=== PATIENT | female | born 1975 | race Caucasian/White ===

== ENCOUNTER 2019-02-11 16:05 | Emergency (ER) | payer OTHER ==
[2019-02-11] MEDS ORDERED: Lidocaine 1% 10 ML MDV INJECT ONE (16:32)
[2019-02-11] MEDS ORDERED: Diphtheria,Pertussis(Acell),Tetanus Vaccine 0.5 ML Syringe IM ONE (16:32)
--- NOTE | 2019-02-11 16:38 | EDM.PDOC ---
ED HPI GENERAL MEDICAL PROBLEM - General Chief Complaint: Laceration Stated Complaint: RIGHT SANCHEZ LAC Time Seen by Provider: 02/11/19 16:11 Source of Information: Reports: Patient, RN Notes Reviewed History Limitations: Reports: No Limitations - History of Present Illness INITIAL COMMENTS - FREE TEXT/NARRATIVE: Patient is a 43-year-old female who presents to the ED for evaluation of a right sanchez laceration. Patient think this injury occurred around 3:30 PM today. She was working outdoors on a trailer, and remembered hitting her legs on either the trailer hitch or cinder block. This resulted in to lacerations to her right lower leg, one is mid sanchez one is more proximal sanchez, the more proximal sanchez is an abrasion type injury, and the lower abrasion/laceration is superficial, and appears to be a gaping wound are right around 2 cm long. Patient is not sure of her last tetanus booster, she thinks she may have gotten one around 11 years ago with her last . She denies any pain, numbness and tingling distal to the injury. Right Lower Leg Pain Score (Numeric/FACES): 7 - Related Data Allergies Allergy/AdvReac Type Severity Reaction Status Date / Time No Known Allergies Allergy Verified 02/11/19 16:14 Home Meds: Home Meds . [No Known Home Meds] 02/11/19 [History] Past Medical History Hematologic History: Reports: Other (See Below) Other Hematologic History: low ferratin level Social & Family History - Tobacco Use Smoking Status *Q: Current Every Day Smoker Years of Tobacco use: 25 Packs/Tins Daily: 0.1 - Caffeine Use Caffeine Use: Reports: Coffee, Soda - Recreational Drug Use Recreational Drug Use: No ED ROS GENERAL - Review of Systems Review Of Systems: See Below Constitutional: Reports: No Symptoms HEENT: Reports: No Symptoms Respiratory: Reports: No Symptoms Cardiovascular: Reports: No Symptoms Endocrine: Reports: No Symptoms GI/Abdominal: Reports: No Symptoms : Reports: No Symptoms Musculoskeletal: Reports: Leg Pain (R sanchez) Skin: Reports: Wound (See HPI) Neurological: Denies: Numbness, Tingling Psychiatric: Reports: No Symptoms Hematologic/Lymphatic: Reports: No Symptoms Immunologic: Reports: No Symptoms ED EXAM, SKIN/RASH Exam: See Below Exam Limited By: No Limitations General Appearance: Alert, WD/WN, No Apparent Distress Respiratory/Chest: No Respiratory Distress, Lungs Clear, Normal Breath Sounds, No Accessory Muscle Use, Chest Non-Tender Cardiovascular: Normal Peripheral Pulses, Regular Rate, Rhythm, No Murmur Peripheral Pulses: 3+: Dorsalis Pedis (L), Dorsalis Pedis (R) Extremities: Normal Inspection (With exception of lacerations on the right sanchez) , Normal Range of Motion, Normal Capillary Refill Neurological: Alert, Oriented, Normal Cognition, No Motor/Sensory Deficits Psychiatric: Normal Affect, Normal Mood Skin: Warm, Dry, Normal Color, No Rash, Wound/Incision (2 wounds: Wound #1 proximal sanchez, this is a superficial abrasion and measures around 3 cm. #2 medial sanchez, this is superficial, but gaping, deeper than the proximal wound, and around 2 cm long, linear in fashion. Not a lot of active bleeding noted to either abrasion.) Location, Skin: Lower Extremity, Right ED SKIN PROCEDURES - Laceration/Wound Repair Right Lower Mid-Anterior Leg Appearance: Superficial, Linear, Clean Distal NVT: Neuro & Vascular Intact, No Tendon Injury Anesthetic Type: Local Local Anesthesia - Lidocaine (Xylocaine): 1% Plain Skin Prep: Chlorhexidine (Hibiciens), Saline Exploration/Debridement/Repair: Wound Explored, In a Bloodless Field, Explored to Base, No Foreign Material Found Closed with: Sutures Lac/Wound length In cm: 2 Suture Size: 4-0 # of Sutures: 5 Suture Type: Prolene, Interrupted, Simple Sterile Dressing Applied: Nurse Tetanus Status Addressed: Yes Complications: No Course - Vital Signs Last Recorded V/S: Last Vital Signs Temp 98.1 F 02/11/19 16:17 Pulse 70 02/11/19 16:17 Resp 20 02/11/19 16:17 BP 128/82 02/11/19 16:17 Pulse Ox 97 02/11/19 16:17 - Orders/Labs/Meds Meds: Medications Discontinued Medications Generic Name Dose Route Start Last Admin Trade Name Freq PRN Reason Stop Dose Admin Diphtheria/Tetanus/Acell Pertussis 0.5 ml 02/11/19 16:32 02/11/19 17:12 Adacel IM 02/11/19 16:33 Not Given .ONCE ONE Lidocaine HCl 10 ml 02/11/19 16:32 02/11/19 17:03 Xylocaine 1% INJECT 02/11/19 16:33 10 ml ONETIME ONE Administration Departure - Departure Time of Disposition: 17:05 Disposition: Home, Self-Care 01 Condition: Fair Clinical Impression: Laceration of right lower leg Qualifiers: Encounter type: initial encounter Qualified Code(s): S81.811A - Laceration without foreign body, right lower leg, initial encounter - Discharge Information *PRESCRIPTION DRUG MONITORING PROGRAM REVIEWED*: No *COPY OF PRESCRIPTION DRUG MONITORING REPORT IN PATIENT KAPIL: No Instructions: Sutured Wound Care, [id number] Referrals: PCP,None [Primary Care Provider] - Forms: ED Department Discharge Additional Instructions: You have been evaluated in the ED for your laceration. Sutures will need to stay in for 10-14 days (02/21-02/25). You may return to the ED or clinic for removal. Please keep this area clean and dry, you may cleanse with regular soap and water. No vigorous scrubbing. Watch out for signs of infection like increased redness, swelling, pain at the laceration site, or if you should develop any fevers or chills. Please return to ED if your symptoms change or worsen.
== END 2019-02-11 17:40 | disposition home or self-care (01) ==
LOC: JD.ED 16:05
DX: S81.811A Laceration without foreign body, right lower leg, initial encounter (principal); F17.210 Nicotine dependence, cigarettes, uncomplicated; W22.8XXA Striking against or struck by other objects, initial encounter; Y93.89 Activity, other specified; Y92.89 Other specified places as the place of occurrence of the external cause
CPT/HCPCS: 12001; 99282; J2001

== ENCOUNTER 2020-08-31 11:49 | Emergency (ER) | payer OTHER ==
--- NOTE | 2020-08-31 12:35 | EDM.PDOC ---
ED HPI GENERAL MEDICAL PROBLEM - General Chief Complaint: Lower Extremity Injury/Pain Stated Complaint: RT KNEE INJURY Time Seen by Provider: 08/31/20 11:59 Source of Information: Reports: Patient, RN Notes Reviewed History Limitations: Reports: No Limitations - History of Present Illness INITIAL COMMENTS - FREE TEXT/NARRATIVE: Patient is a 45-year-old female presenting to the emergency department with complaints of right knee pain. She reports that she kneeled down and felt a pop. She has been unable to straighten her knee since the time of occurrence. She reports that she has had numerous episodes similar to this in the past, however normally she can straighten her leg and will feel another pop and it resolves. She did have an MRI done approximately 1 year ago of the knee and no abnormalities were found. Right Knee Pain Score (Numeric/FACES): 8 - Related Data Allergies Allergy/AdvReac Type Severity Reaction Status Date / Time No Known Allergies Allergy Verified 08/31/20 12:03 Home Meds: Home Meds Control. 1 tab PO DAILY 08/31/20 [History] Naproxen [Naprosyn] 500 mg PO Q12HR 5 Days #10 tab 08/31/20 [Rx] Past Medical History Hematologic History: Reports: Other (See Below) Other Hematologic History: low ferratin level - Past Surgical History GI Surgical History: Reports: Colonoscopy Social & Family History - Tobacco Use Tobacco Use Status *Q: Former Tobacco User Used Tobacco, but Quit: Yes Month/Year Tobacco Last Used: 3 years - Caffeine Use Caffeine Use: Reports: Coffee, Soda - Recreational Drug Use Recreational Drug Use: No Review of Systems - Review of Systems Review Of Systems: Comprehensive ROS is negative, except as noted in HPI. ED EXAM, GENERAL - Physical Exam Exam: See Below General Appearance: Alert, WD/WN, No Apparent Distress Respiratory/Chest: No Respiratory Distress, Lungs Clear, Normal Breath Sounds, No Accessory Muscle Use, Chest Non-Tender Cardiovascular: Normal Peripheral Pulses, Regular Rate, Rhythm, No Edema, No Gallop, No JVD, No Murmur, No Rub Extremities: Other (mild suprapatellar swelling. Patella is midline. No obvious deformity. Pt unable to straighten knee d/t pain.) Course - Vital Signs Last Recorded V/S: Last Vital Signs Temp 98.2 F 08/31/20 12:05 Pulse 88 08/31/20 12:05 Resp 16 08/31/20 12:05 BP 143/93 H 08/31/20 12:05 Pulse Ox 97 08/31/20 12:05 - Re-Assessments/Exams Free Text/Narrative Re-Assessment/Exam: 08/31/20 13:25 xray reviewed by myself and Dr. Cancino shows no acute abnormalities. Pt will be placed in a knee immobilizer bent and positions at the angle of comfort to stabalize joint and prevent further injury. She will be provided crutches as well as a prescription for Naprosyn. Recommend ice and elevation, as well as gentle ROM exercises. If no improvement over the next few days, f/u in clinic for reevaluation. Discharge instructions as documented. Departure - Departure Time of Disposition: 13:29 Disposition: Home, Self-Care 01 Condition: Good Clinical Impression: Knee sprain Qualifiers: Encounter type: initial encounter Involved ligament of knee: unspecified ligament Laterality: right Qualified Code(s): S83.91XA - Sprain of unspecified site of right knee, initial encounter - Discharge Information *PRESCRIPTION DRUG MONITORING PROGRAM REVIEWED*: No *COPY OF PRESCRIPTION DRUG MONITORING REPORT IN PATIENT KAPIL: No Prescriptions: Naproxen [Naprosyn] 500 mg PO Q12HR 5 Days #10 tab Instructions: Crutch Use, Adult, [id number], Knee Sprain, Adult, [id number] Referrals: PCP,None [Primary Care Provider] - Forms: ED Department Discharge Additional Instructions: You were seen in the emergency department today for pain and swelling to your right knee with the inability to straighten the knee. Xrays were completed and show no abnormality. Unfortunately, the majority of knee injuries are related to the ligaments and are not visible on xray. You have been provided a knee immobilizer to stabalize the joint and crutches. Wear this when up and moving around. You may remove it when at rest and ice and elevate the extremity. Recommend gentle range of motion exercises. You have been prescribed Naprosyn to reduce inflammation in the joint. If you are not seeing improvement in the joint after a few days, recommend follow-up in the clinic. Return to ER for any new or worsening symptoms of concern. Sepsis Event Note (ED) - Evaluation Sepsis Screening Result: No Definite Risk
--- NOTE | 2020-09-01 08:18 | CR ---
Right knee: 4 views of the right knee were obtained. Comparison: No prior right knee study is available. Positioning is slightly less than optimal. No discrete fracture or other bony abnormality is appreciated. Impression: 1. Less than optimal positioning. 2. No definite acute abnormality is appreciated. Note: If patient remains symptomatic, recommend follow-up study in 10-14 days. Diagnostic code #2
== END 2020-08-31 13:50 | disposition home or self-care (01) ==
LOC: JD.ED 11:49
DX: S83.91XA Sprain of unspecified site of right knee, initial encounter (principal); Z87.891 Personal history of nicotine dependence; X58.XXXA Exposure to other specified factors, initial encounter
CPT/HCPCS: 73564-26-RT; 73564-RT; 99283; 99283-25

== ENCOUNTER 2021-04-10 17:53 | Emergency (ER) | payer OTHER ==
[2021-04-10] MEDS ORDERED: Lidocaine 1% 10 ML MDV INJECT ONE (18:06)
--- NOTE | 2021-04-10 18:06 | EDM.PDOC ---
ED HPI GENERAL MEDICAL PROBLEM - General Chief Complaint: Laceration Stated Complaint: LT THUMB LAC Time Seen by Provider: 04/10/21 18:05 Source of Information: Reports: Patient, RN Notes Reviewed History Limitations: Reports: No Limitations - History of Present Illness INITIAL COMMENTS - FREE TEXT/NARRATIVE: Patient is a 45-year-old female who presents to the ER for evaluation of a left thumb laceration. States that around 2 PM, she was cutting open a bread bowl, and ended up lacerating the ulnar aspect of the patient's left posterior thumb. This is near the nail but did not violate the nail bed. Patient states that it would not stop bleeding, this is why she comes into the ER for evaluation. This is roughly 2 cm in length, and linear in fashion. Patient denies any other sick-like symptoms, fever/chills, cough/shortness of breath, nausea/vomiting/diarrhea. Patient's not complaining of any numbness or tingling distal to the injury. She is up-to-date on the tetanus vaccine. Left Hand Pain Score (Numeric/FACES): 3 - Related Data Allergies Allergy/AdvReac Type Severity Reaction Status Date / Time No Known Allergies Allergy Verified 04/10/21 18:07 Home Meds: Home Meds Control. 1 tab PO DAILY 08/31/20 [History] Naproxen [Naprosyn] 500 mg PO Q12HR 5 Days #10 tab 08/31/20 [Rx] Past Medical History Hematologic History: Reports: Other (See Below) Other Hematologic History: low ferratin level - Past Surgical History GI Surgical History: Reports: Colonoscopy Social & Family History - Caffeine Use Caffeine Use: Reports: Coffee, Soda ED ROS GENERAL - Review of Systems Review Of Systems: Comprehensive ROS is negative, except as noted in HPI. ED EXAM, SKIN/RASH Exam: See Below Exam Limited By: No Limitations General Appearance: Alert, WD/WN, No Apparent Distress Respiratory/Chest: No Respiratory Distress, Lungs Clear, Normal Breath Sounds, No Accessory Muscle Use, Chest Non-Tender Cardiovascular: Normal Peripheral Pulses, Regular Rate, Rhythm, No Edema Peripheral Pulses: 2+: Radial (L), Radial (R) Extremities: Normal Range of Motion, Normal Capillary Refill Neurological: Alert, Oriented, Normal Cognition, No Motor/Sensory Deficits Psychiatric: Normal Affect, Normal Mood Skin: Warm, Dry, Normal Color, No Rash, Wound/Incision (2 cm linear laceration to the ulnar aspect of the patient's left posterior thumb) ED SKIN PROCEDURES - Laceration/Wound Repair Left Posterior Medial Digit - 1st (Thumb) Appearance: Superficial, Linear, Clean Distal NVT: Neuro & Vascular Intact, No Tendon Injury Anesthetic Type: Local Local Anesthesia - Lidocaine (Xylocaine): 1% Plain Local Anesthetic Volume: 3cc Skin Prep: Chlorhexidine (Hibiciens), Saline Exploration/Debridement/Repair: Wound Explored, In a Bloodless Field, Explored to Base, No Foreign Material Found Closed with: Sutures Lac/Wound length In cm: 2 Suture Size: 4-0 # of Sutures: 6 Suture Type: Prolene, Interrupted, Simple Sterile Dressing Applied: Nurse Tetanus Status Addressed: Yes Complications: No Course - Vital Signs Last Recorded V/S: Last Vital Signs Temp 98.0 F 04/10/21 18:06 Pulse 97 04/10/21 18:06 Resp 18 04/10/21 18:06 BP 168/113 H 04/10/21 18:06 Pulse Ox 100 04/10/21 18:06 - Orders/Labs/Meds Meds: Medications Discontinued Medications Generic Name Dose Route Start Last Admin Trade Name Freq PRN Reason Stop Dose Admin Lidocaine HCl 10 ml 04/10/21 18:06 04/10/21 18:13 Lidocaine 1% 10 Ml Mdv INJECT 04/10/21 18:07 10 ml ONETIME ONE Administration Departure - Departure Time of Disposition: 18:14 Disposition: Home, Self-Care 01 Condition: Good Clinical Impression: Laceration of left thumb Qualifiers: Encounter type: initial encounter Damage to nail status: without damage Foreign body presence: without foreign body Qualified Code(s): S61.012A - Laceration without foreign body of left thumb without damage to nail, initial encounter - Discharge Information *PRESCRIPTION DRUG MONITORING PROGRAM REVIEWED*: No *COPY OF PRESCRIPTION DRUG MONITORING REPORT IN PATIENT KAPIL: No Instructions: Sutures, Shannen, or Adhesive Wound Closure, [id number] Referrals: PCP,None [Primary Care Provider] - Forms: ED Department Discharge Additional Instructions: You have been evaluated in the ED for your laceration. Sutures will need to stay in for about 10 days (04/20/20). You may return to the ED or any clinic for removal. Please keep this area clean and dry, you may cleanse with regular soap and water. No vigorous scrubbing. Please try to avoid submerging the affected area in water for prolonged periods of time until the sutures are removed. Watch out for signs of infection like increased redness, swelling, pain at the laceration site, or if you should develop any fevers or chills. Please return to ED if your symptoms change or worsen. Sepsis Event Note (ED) - Focused Exam Vital Signs: Vital Signs Temp Pulse Resp BP Pulse Ox 04/10/21 18:06 98.0 F 97 18 168/113 H 100
== END 2021-04-10 19:15 | disposition home or self-care (01) ==
LOC: JD.ED 17:53
DX: S61.012A Laceration without foreign body of left thumb without damage to nail, initial encounter (principal); W26.8XXA Contact with other sharp object(s), not elsewhere classified, initial encounter
CPT/HCPCS: 12001; 99282-25; 99283

== ENCOUNTER 2021-05-16 12:20 | Emergency (ER) | payer OTHER ==
[2021-05-16] MEDS ORDERED: Apixaban 5 MG Tab PO ONE (15:04)
== END 2021-05-16 15:48 | disposition home or self-care (01) ==
LOC: SUPCPDRO 12:20 → JD.ED 12:20
DX: I82.451 Acute embolism and thrombosis of right peroneal vein (principal); Z79.82 Long term (current) use of aspirin; Z79.01 Long term (current) use of anticoagulants
CPT/HCPCS: 93971; 99283; A9270